=== PATIENT | female | born 1950 | race Caucasian/White ===

== ENCOUNTER → 2024-12-21 | Outpatient (CLI) | payer MEDICARE ==
[~2024-12-21] MED LIST: ALBUTEROL 0.083% 2.5 MG/3 ML INH IH ONE; ASPI-1197 PO; AZEL137S11 NS; B12/1TAB PO; FLUT1BLS3 IH; L. R1CAP4 PO; LEVO150T11 PO; SERT-439 PO; [UNRECOGNIZED DRUG - CODE] PO; biotin PO; propanolol PO
== END | disposition home or self-care (01) ==
LOC: RESP 12:53
PROVIDERS: ATTEND Internal Medicine Interventional Cardiology
DX: J44.9 Chronic obstructive pulmonary disease, unspecified (principal); R06.02 Shortness of breath; R06.09 Other forms of dyspnea
CPT/HCPCS: 94060; 94727; 94729

== ENCOUNTER → 2025-02-23 | Outpatient (CLI) | payer MEDICARE ==
[~2025-02-23] MED LIST changes: -ALBUTEROL 0.083% 2.5 MG/3 ML INH IH ONE; +IOHEXOL-350 75 ML VIAL IV ONE
--- NOTE | 2025-02-23 10:39 | HMCIMG ---
CT CHEST W/WO CONTRAST HISTORY: Cough and shortness of breath COMPARISON: None TECHNIQUE: Multiple sequential axial images of the chest were obtained from the thoracic inlet through upper abdomen. Patient was not given contrast through intravenous route. FINDINGS: COPD changes are seen. There are mild interstitial fibrosis. Calcifications are seen small hiatal There is no evidence of pulmonary nodule or parenchymal disease. No pleural effusion or pericardial effusion is seen. There is no evidence of pneumothorax. There are normal size mediastinal and hilar lymph nodes. The heart is not enlarged. Degenerative changes of the thoracolumbar spine are present. There is no evidence of adrenal nodule. IMPRESSION: 1. No evidence of pulmonary nodule or effusion is seen. CT was performed with one or more following dose reduction techniques: automated exposure control, adjustment of the mA and kv according to patient's size, or use of a iterative reconstruction technique.
== END | disposition home or self-care (01) ==
LOC: RAH 10:00
PROVIDERS: ATTEND Internal Medicine Nephrology
DX: J44.9 Chronic obstructive pulmonary disease, unspecified (principal); J84.10 Pulmonary fibrosis, unspecified; J98.6 Disorders of diaphragm; R05.9 Cough, unspecified; M47.815 Spondylosis without myelopathy or radiculopathy, thoracolumbar region
CPT/HCPCS: 71270; Q9967

== ENCOUNTER → 2025-03-21 | Outpatient (CLI) | payer MEDICARE ==
[~2025-03-21] MED LIST changes: -IOHEXOL-350 75 ML VIAL IV ONE
--- NOTE | 2025-03-21 16:19 | HMCIMG ---
US VENOUS DOPPLER UNILATERAL HISTORY: History of DVT COMPARISON: None TECHNIQUE: Left lower extremity venous Doppler ultrasound study was performed. FINDINGS: The left common femoral, femoral, popliteal, and posterior tibial veins are visualized. Echogenic thrombus is seen . The left superficial femoral vein and left popliteal vein consistent with deep venous thrombosis. Patient has history of deep venous thrombosis per patient. The greater saphenous veins are also seen and grossly patent. IMPRESSION: 1. Findings suggestive of deep venous thrombosis involving the left superficial femoral vein and portal vein.
== END | disposition home or self-care (01) ==
LOC: RAH 14:12
PROVIDERS: ATTEND Internal Medicine
DX: I82.890 Acute embolism and thrombosis of other specified veins (principal); D75.1 Secondary polycythemia; Z86.718 Personal history of other venous thrombosis and embolism
CPT/HCPCS: 93971

== ENCOUNTER → 2025-05-30 | Outpatient (CLI) | payer MEDICARE ==
--- NOTE | 2025-05-31 14:25 | HMCIMG ---
EXAM: CT Abdomen and Pelvis Without IV contrast CLINICAL HISTORY: Intra-abdominal and pelvic swelling, mass and lump, unspecified site TECHNIQUE: Axial computed tomography images of the abdomen and pelvis without intravenous contrast. CONTRAST: No IV contrast. COMPARISON: None provided. FINDINGS: LUNG BASES: The lung bases appear clear. No pleural effusions are seen. LIVER: Unremarkable. GALLBLADDER AND BILE DUCTS: The gallbladder appears within normal limits. No radioopaque gallstones are seen. No biliary ductal dilatation is evident. PANCREAS: Unremarkable. SPLEEN: Unremarkable. ADRENAL GLANDS: Unremarkable. KIDNEYS, URETERS, AND BLADDER: The kidneys appear within normal limits. There is no hydronephrosis or hydroureter. No urinary calculi are seen. STOMACH AND BOWEL: Unremarkable appearance of the stomach and bowel. No evidence of bowel obstruction. No evidence suggesting enteritis or colitis. Colonic diverticulosis without evidence of diverticulitis. APPENDIX: Normal appendix. PERITONEUM: No free fluid. No free air. LYMPH NODES: No lymphadenopathy is evident. REPRODUCTIVE: Unremarkable as visualized. VASCULATURE: Atherosclerotic changes involving visualized arterial vasculature in the form of a fibrocalcified plaque. IVC filter is placed. No evidence of abdominal aortic aneurysm. BONES: Osseous degenerative changes with scoliotic deformity involving the thoracolumbar spine with convexity towards the left side. No aggressive appearing osseous lesion. No acute osseous pathology is evident. Approximately 68 x 37 x 39 mm-sized well-defined fat density lesion involving the anterior abdominal wall, epigastric, and left hypochondriac region in the soft tissue plane, suggestive of lipoma. Small umbilical hernia with herniation of fat.IMPRESSION: 1. No acute intra-abdominal or pelvic pathology. 2. Anterior abdominal wall lipoma measuring 68 x 37 x 39 mm in the epigastric and left hypochondriac region. 3. Small umbilical hernia with herniated fat. 4. IVC filter in place. /[place]
== END | disposition home or self-care (01) ==
LOC: RAH 13:12
PROVIDERS: ATTEND Internal Medicine Nephrology
DX: K42.9 Umbilical hernia without obstruction or gangrene (principal); K57.30 Diverticulosis of large intestine without perforation or abscess without bleeding; M51.35 Other intervertebral disc degeneration, thoracolumbar region; R19.00 Intra-abdominal and pelvic swelling, mass and lump, unspecified site
CPT/HCPCS: 74176